=== PATIENT | female | born 1960 | race Caucasian/White ===

== ENCOUNTER 2019-01-16 23:01 | Emergency (ER) | payer OTHER ==
[~2019-01-16] VITALS: Wt 65.0 kg
[2019-01-17] MEDS ORDERED: ONDANSETRON 4 MG INJ IV STA (00:59)
[2019-01-17] MEDS ORDERED: SOD CHLORIDE 0.9% 1,000 ML IV STA (00:59)
[2019-01-17] MEDS ORDERED: KETOROLAC 30 MG INJ IV STA (00:59)
[2019-01-17] MEDS ORDERED: ACET500C5 PO (02:47)
[2019-01-17] MEDS ORDERED: IBUP-1542 PO (02:47)
--- NOTE | 2019-01-17 02:54 | ERD ---
ER Documentation Chief Complaint Chief Complaint DYSURIA, PELVIC PAIN RADIATING TO BILAT LOWER BACK X'S 2 DAYS HPI 58-year-old female presenting with pain x2 days. Patient describes as a cramping type pain comes and goes. She does not know what causes it relieves it. She is never had this before. Denies vomiting or nausea. Denies change in urination. Has had episodes of diarrhea with some blood in it. Denies medical problems. NKDA. Surgical history denies. Smokes 1 cigarette a day. ROS All systems reviewed and are negative except as per history of present illness. Medications Home Meds Active Scripts Acetaminophen* (Tylophen*) 500 Mg Capsule, 2 CAP PO Q8H PRN for PAIN AND OR ELEVATED TEMP, #20 CAP Prov:HIPOLITO HARMON PA-C 01/17/19 Ibuprofen* (Motrin*) 600 Mg Tab, 600 MG PO Q6, #30 TAB Prov:HIPOLITO HARMON PA-C 01/17/19 Allergies Allergies: Coded Allergies: No Known Allergy (Unverified , 01/16/19) PMhx/Soc Medical and Surgical Hx: pt denies Medical Hx, pt denies Surgical Hx Hx Alcohol Use: No Hx Substance Use: No Hx Tobacco Use: No Smoking Status: Never smoker FmHx Family History: No diabetes, No coronary disease, No other Physical Exam Vitals Vital Signs Date Temp Pulse Resp B/P (MAP) Pulse Ox O2 O2 Flow FiO2 Time Delivery Rate 01/16/19 98.7 95 18 137/86 98 23:05 (103) Physical Exam GENERAL: The patient is well-appearing, well-nourished, in no acute distress HEENT: Atraumatic. Conjunctivae are pink. Pupils equal, round, and reactive to light. There is no scleral icterus. Tympanic membranes clear bilaterally. Oropharynx clear. No nystagmus or photophobia. NECK: C-spine is soft and supple. There is no meningismus. There is no cervical lymphadenopathy. HEART: Regular rate and rhythm. No murmurs, clicks, rubs or gallops. No S3 or S4. ABDOMEN:Soft, nontender and nondistended. Good bowel sounds. No rebound or guarding. No gross peritonitis. No gross organomegaly or masses. BACK: No midline or flank tenderness. Result Diagram: 01/17/1910701/17/19107 Results 24 hrs Laboratory Tests Test 01/17/19 01:08 White Blood Count 13.7 10^3/ul Red Blood Count 4.47 10^6/ul Hemoglobin 13.3 g/dl Hematocrit 39.3 % Mean Corpuscular Volume 87.9 fl Mean Corpuscular Hemoglobin 29.8 pg Mean Corpuscular Hemoglobin Concent 33.8 g/dl Red Cell Distribution Width 12.6 % Platelet Count 353 10^3/UL Mean Platelet Volume 9.2 fl Immature Granulocytes % 0.500 % Neutrophils % 82.3 % Lymphocytes % 11.3 % Monocytes % 5.3 % Eosinophils % 0.3 % Basophils % 0.3 % Nucleated Red Blood Cells % 0.0 /100WBC Immature Granulocytes # 0.070 10^3/ul Neutrophils # 11.3 10^3/ul Lymphocytes # 1.6 10^3/ul Monocytes # 0.7 10^3/ul Eosinophils # 0.0 10^3/ul Basophils # 0.0 10^3/ul Nucleated Red Blood Cells # 0.0 10^3/ul Urine Color YELLOW Urine Clarity CLEAR Urine pH 9.0 Urine Specific [place] 1.010 Urine Ketones NEGATIVE mg/dL Urine Nitrite NEGATIVE mg/dL Urine Bilirubin NEGATIVE mg/dL Urine Urobilinogen NEGATIVE mg/dL Urine Leukocyte Esterase NEGATIVE Prema/ul Urine Hemoglobin NEGATIVE mg/dL Urine Glucose NEGATIVE mg/dL Urine Total Protein NEGATIVE mg/dl Sodium Level 139 mmol/L Potassium Level 3.7 mmol/L Chloride Level 99 mmol/L Carbon Dioxide Level 32 mmol/L Anion Gap 8 Blood Urea Nitrogen 15 mg/dl Creatinine 0.65 mg/dl Est Glomerular Filtrat Rate mL/min > 60 mL/min Glucose Level 146 mg/dl Calcium Level 9.6 mg/dl Total Bilirubin 0.5 mg/dl Direct Bilirubin 0.00 mg/dl Indirect Bilirubin 0.5 mg/dl Aspartate Amino Transf (AST/SGOT) 27 IU/L Alanine Aminotransferase (ALT/SGPT) 28 IU/L Alkaline Phosphatase 95 IU/L Total Protein 7.4 g/dl Albumin 4.5 g/dl Globulin 2.90 g/dl Albumin/Globulin Ratio 1.55 Lipase 100 U/L Current Medications Medications Dose Sig/Nadine Start Time Status Last (Trade) Ordered Route PRN Stop Time Admin Dose Reason Admin Sodium 1,000 ml @ Q1H STAT 01/17/19 DC 01/17/19 Chloride 1,000 mls/hr IV 00:59 01:19 01/17/19 01:58 Ondansetron 4 mg ONCE STAT 01/17/19 DC 01/17/19 HCl (Zofran IV 00:59 01:19 Inj) 01/17/19 01:01 Ketorolac 30 mg ONCE STAT 01/17/19 DC 01/17/19 Tromethamine IV 00:59 01:47 (Toradol) 01/17/19 01:01 Procedures/MDM DIAGNOSTIC IMAGING REPORT Patient: ANDREWS RICKS : 1960 Age: 58 Sex: F MR #: [id number] DOS: 01/17/1956 Ordering MD: STEPHANIE HARMON PA-C Location: [facility] Room/Bed: PROCEDURE: CT ABDOMEN AND PELVIS WITHOUT CONTRAST CLINICAL INDICATION: Flank pain. TECHNIQUE: CT of the abdomen and pelvis was performed without intravenous contrast. Oral contrast was not administered prior to the examination. Coronal and sagittal reformatted images were obtained from the axial source images. Images were reviewed on a high-resolution PACS workstation. DICOM images are available. Dose information: Based on a 32 cm phantom, the estimated radiation dose (CTDIvol mGy) for each series in this exam is 8.94. The estimated cumulative dose (DLP mGy-cm) is 475.29. One or more of the following dose reduction techniques were used: - Automated exposure control. - Adjustment of the mA and/or kV according to patient size. - Use of iterative reconstruction technique. COMPARISON: None available. FINDINGS: In the absence of intravenous contrast, the study constitutes a limited assess ment of the solid organs, bowel and vessels. LUNG BASES: Normal noncontrast appearance. ABDOMEN/PELVIS: Liver: Slight decreased attenuation likely consistent with hepatic steatosis. Gallbladder: Normal noncontrast appearance. Bile ducts: No intrahepatic or extrahepatic biliary duct dilatation. Spleen: Normal noncontrast appearance. Pancreas: Normal noncontrast appearance. Adrenal glands: Normal noncontrast appearance. Kidneys and ureters: Normal noncontrast appearance. Aorta and IVC: Normal size. Lymph nodes: Normal noncontrast appearance. Gastrointestinal tract: The stomach is partly collapsed. Small bowel loops are nondistended. Moderate retained fecal matter is seen in the colon. There are scattered diverticula of the descending and sigmoid colon without d iverticulitis. Appendix: The appendix is normal. Bladder: Normal noncontrast appearance. Pelvic Organs: Normal noncontrast appearance. Peritoneal cavity: No free fluid or free intraperitoneal air. Abdominal wall: Normal noncontrast appearance. MUSCULOSKELETAL: Bones: No acute fracture No suspicious bone lesions. Mild thoracolumbar rotary dextroscoliosis. Severe disc height loss L5-S1. IMPRESSION: 1. Diverticulosis without diverticulitis. 2. Slightly decreased hepatic attenuation likely on the basis hepatic steatosis. 3. Thoracolumbar rotary dextroscoliosis. Severe disc height loss of L5-S1. Please note that in the absence of intravenous contrast the study does not evaluate the patency of the vasculature. MDM: 58-year-old female presenting with pelvic discomfort. Patient's exam is non-concerning. Patient's blood work is within normal limits, urine is within normal limits and CT scan is within normal limits. Vitals are stable. Patient is discharged with supportive medications and told to follow-up with primary care within 1 to 2 days for close evaluation. Patient is told if symptoms change or worsen to immediately return to the ER. All questions answered at discharge Departure Diagnosis: Primary Impression: Acute pain in female pelvis Condition: Stable Patient Instructions: Pelvic Pain, Unknown Cause Referrals: [facility] YOU HAVE RECEIVED A MEDICAL SCREENING EXAM AND THE RESULTS INDICATE THAT YOU DO NOT HAVE A CONDITION THAT REQUIRES URGENT TREATMENT IN THE EMERGENCY DEPARTMENT. FURTHER EVALUATION AND TREATMENT OF YOUR CONDITION CAN WAIT UNTIL YOU ARE SEEN IN YOUR DOCTORS OFFICE WITHIN THE NEXT 1-2 DAYS. IT IS YOUR RESPONSIBILITY TO MAKE AN APPOINTMENT FOR FOLOW-UP CARE. IF YOU HAVE A PRIMARY DOCTOR --you should call your primary doctor and schedule an appointment IF YOU DO NOT HAVE A PRIMARY DOCTOR YOU CAN CALL OUR PHYSICIAN REFERRAL HOTLINE AT IF YOU CAN NOT AFFORD TO SEE A PHYSICIAN YOU CAN CHOSE FROM THE FOLLOWING [facility] CLINICS [facility] [address] [facility] [address] [facility] [address] [facility] [address] [facility]. [facility] [address] [facility]. [facility] [address] Additional Instructions: FOLLOW UP WITH YOUR PRIMARY CARE PHYSICIAN TOMORROW.Return to this facility if you are not improving as expected. HIPOLITO HARMON PA-C Jan 17, 2019 02:54
[2019-01-17 03:05] VITALS: BP 117/69; PULSE 67; RESP 18
== END 2019-01-17 03:06 | disposition home or self-care (01) ==
LOC: FTE 23:01
DX: R10.2 Pelvic and perineal pain (principal)
CPT/HCPCS: 36415; 74176; 80053; 81003; 83690; 85025; 96374; 96375; J1885; J2405; J7030; Z7502